=== PATIENT | female | born 1970 | race Caucasian/White ===

== ENCOUNTER → 2016-10-03 | Outpatient (CLI) | payer BC | LOC: FIMAGING 12:27 | PROVIDERS: ATTEND Obstetrics & Gynecology | DX: R92.1 Mammographic calcification found on diagnostic imaging of breast (principal) | CPT/HCPCS: G0204 ==

== ENCOUNTER → 2018-01-27 | Outpatient (CLI) | payer OTHER | LOC: FIMAGING 13:34 | PROVIDERS: ATTEND Obstetrics & Gynecology | DX: Z12.31 Encounter for screening mammogram for malignant neoplasm of breast (principal) ==